=== PATIENT | male | born 1965 | race Asian ===

== ENCOUNTER 2025-01-07 06:22 | Day surgery (SDC) | payer OTHER, SELFPAY | END 2025-01-07 14:15 | disposition home or self-care (01) | LOC: GI 06:22 | PROVIDERS: ATTENDING PHYSICIAN Specialist; FAMILY PHYSICIAN Hospitalist | DX: Z12.11 Encounter for screening for malignant neoplasm of colon (principal); D12.3 Benign neoplasm of transverse colon; K63.5 Polyp of colon | CPT/HCPCS: 45380; 88305 ==